=== PATIENT | male | born 1935 | race Caucasian/White ===

== ENCOUNTER 2020-08-06 13:49 | Emergency (ER) | payer MEDICARE, OTHER ==
[~2020-08-06 13:49] MED LIST: FISH OIL 1,0001 EAC1 PO; GLUCOPHAGE1000 MG PO; GLUCOTROL 10 MG10 MG PO; LEVEMIR FL100 UNIT/1 SQ; ZANTAC300 MG PO
[2020-08-06 15:31] LABS: RED BLOOD COUNT 4.63 M/UL (4.20-5.50); WHITE BLOOD COUNT 7.4 K/UL (4.5-11.0)
[2020-08-06 16:06] LABS: BUN/CREATININE RATIO 16 (0-10)
[2020-08-06] MEDS ORDERED: VALACYCLOVIR1000 MG PO ×2 (16:49→16:50)
== END 2020-08-06 17:00 | disposition home or self-care (01) ==
LOC: ER1 13:49
PROVIDERS: Family Medicine
DX: B02.9 Zoster without complications (principal); I87.8 Other specified disorders of veins; F03.90 Unspecified dementia, unspecified severity, without behavioral disturbance, psychotic disturbance, mood disturbance, and anxiety; R68.89 Other general symptoms and signs; I10 Essential (primary) hypertension
CPT/HCPCS: 36415; 80053; 82550; 82553; 83605; 83735; 83874; 84484; 85025; 86140; 87086; 93005; 99284